=== PATIENT | male | born 1960 | race African-American/Black ===

== ENCOUNTER 2018-07-02 08:56 | Emergency (ER) | payer OTHER ==
[~2018-07-02] VITALS: Ht 175.3 cm; Wt 88.5 kg
[2018-07-02 09:21] VITALS: BP 116/77
--- NOTE | 2018-07-02 09:43 | NUR ---
PT WALKED INTO EMERGENCY ROOM WITH C/C L FACIAL SWELLING SINCE WEDNESDAY FROM A POSSIBLE INSECT BITE PER PT PT ABLE TO SPEAK CLEARLY NO SOB NOTED PT ALERT WITH ORIENTATION X 4.
== END 2018-07-02 10:12 | disposition home or self-care (01) ==
LOC: ER 08:59
DX: H02.845 Edema of left lower eyelid (principal); Z91.048 Other nonmedicinal substance allergy status